=== PATIENT | female | born 1955 | race Caucasian/White ===

== ENCOUNTER 2017-03-07 10:17 | Day surgery (SDC) | payer OTHER ==
--- NOTE | 2017-02-23 08:02 | HP ---
CC: Andres Hutchins MD * ADMISSION HISTORY AND PHYSICAL: DATE OF ADMISSION/SURGERY: 03/07/17 ATTENDING SURGEON: José Miguel Pastor MD * (DICTATED BY KARYNA ZURITA) PRIMARY CARE PHYSICIAN: Andres Hutchins MD CHIEF COMPLAINT: Left buttock subcutaneous lesion. HISTORY OF PRESENT ILLNESS: Mrs. Aparicio is a pleasant 61-year-old female who was seen in the office earlier this month to discuss excision of left buttock subcutaneous lesion. The patient was seen in the office by Dr. Pastor about 6 months ago regarding a lesion in her buttock/sacral area that has been bothering her on and off for the past year or so. At that time, she appeared to be mostly asymptomatic; however, she experienced some pressure feeling upon sitting for a long time. The patient does a lot of travelling due to her work obligations and notes occasional problem while sitting for a prolonged flights going away or coming back home. She has family history consistent with neurofibromatosis, but denies any similar lesion herself in the past few years. She was seen 6 months ago and again came back a couple of weeks ago for a followup and denies any significant changes in her sacral/buttock lesion. She had an MRI done that was read by Dr. Pastor and was found to have some dystrophic calcification secondary to chronic inflammation or potentially a chondroid type neoplasm given the morphology of the lesions. The patient herself denies any history of significant pain, bleeding, or discharge from the area. She does note that she fell on her tail bone 2 years ago while shoveling snow where she experienced significant pain in the area; however, she denies any bleeding or hematoma. She was seen by Dr. Hutchins and frequent exams of this area revealed no significant abnormality. She underwent a biopsy at [facility] by Dr. Pastor that revealed evidence of benign probably ruptured cystic mass from the left buttock area. Given her ongoing symptoms and uncertainty of the lesion, she was considered to do a full excision of the area under monitored anesthesia care to be scheduled on an elective date. PAST MEDICAL HISTORY: Significant for panic disorders and recently diagnosed with partial complex seizures; however, she denies any evidence of myoclonic seizure or any loss of consciousness. She also has history of palmar fibromatosis. PAST SURGICAL HISTORY: Significant for dilatation and curettage in the 1979 and 1982. CURRENT MEDICATIONS: Her medications at home include: 1. Potassium 99 mcg one daily. 2. Calcium with vitamin D 600 units 2 tablets daily. 3. Aspirin 81 mg p.o. daily. 4. Multivitamin once a day. 5. Claritin 10 mg p.o. as needed for congestion. 6. Fluoxetine 20 mg 1 tablet daily. 7. Divalproex sodium 250 mg 1 tablet twice daily. ALLERGIES: She is allergic to IV DYE, CODEINE, and DILANTIN. FAMILY HISTORY: She reports family history of neurofibromatosis in both her parents. She denies any family history of melanoma or colorectal malignancies. SOCIAL HISTORY: The patient is single. 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 She is a current smoker, who smokes half a pack per day and she drinks alcohol occasionally. REVIEW OF SYSTEMS: See HPI, otherwise negative. She denies any headache, dizziness, blurred vision, or double vision. No chest pain, palpitation, shortness of breath, or wheezing. No back pain, flank pain, dysuria, hematuria , or urinary frequency. She admits to a bulge or a mass on the left buttock area, but denies any significant tenderness, oozing, bleeding, or discharge from the area. No fever, chills, night sweats, or recent weight loss. PHYSICAL EXAMINATION GENERAL: She is a pleasant, healthy-appearing upper middle-aged female, in no acute distress or discomfort at the time of her consultation. VITAL SIGNS: Her vitals today revealed blood pressure of 136/81, respiration of 16, pulse of 75, and temperature 98.1. HEENT: Head is normocephalic, atraumatic. Sclerae anicteric. PERRLA. EOMs intact. Oropharynx is pink and moist with no exudate. NECK: Supple. Trachea midline. No cervical adenopathy, thyromegaly, or JVD. LUNGS: Clear to auscultation bilaterally. HEART: Regular rate and rhythm. Normal S1 and S2 without rubs, murmurs, or gallops. BACK: With normal curvature. No CVA tenderness. BREAST EXAM: Deferred at this time. ABDOMEN: Soft, nontender, and nondistended. No hernias, masses, or hepatosplenomegaly. EXTREMITIES: Without cyanosis, clubbing, or edema. BACK EXAM: Focussed exam of the sacral region revealed an approximately 4 cm mobile lesion deep to the skin along the left buttock adjacent to the gluteal cleft. It is regularly shaped; however, mobile and nontender on exam. There is no overlying skin changes or any evidence of discharge or erythema noted. It does feel somewhat tethered to the skin at the most central portion. There is no evidence of pilonidal cyst at midline. RECTAL EXAM: Deferred at this time. IMPRESSION: A 61-year-old female with longstanding history of intermittently tender left buttock/sacral subcutaneous lesion. PLAN: The patient is scheduled for excision of left buttock subcutaneous lesion to be performed by Dr. Pastor on a later date. We went on and discussed with her the rationale, indication, risks, and benefits of surgery. Risks include, but not limited to infection, bleeding, or injury to adjacent structures. She appears to understand and wishes to proceed as outlined. She was advised to hold her aspirin 5 days prior to the surgery and we will plan to follow her up accordingly. KARYNA ZURITA [id number]/[facility] #: [id number] MTDD
[~2017-03-07 10:17] MED LIST: Buffered Lidocaine 0.9% SYRIN* 5 ML/SYR SYRINGE INTRADERM ONE
[2017-03-07] MEDS ORDERED: Buffered Lidocaine 0.9% SYRIN* 5 ML/SYR SYRINGE ONE (10:21)
[2017-03-07] MEDS ORDERED: ceFAZolin 2 GM PREMIX (*) 2 GM/50 ML BAG IVPB ONE (10:21)
[2017-03-07] MEDS ORDERED: fentaNYL* 50 MCG/ML 2 ML VIAL (100 MCG VIAL) ONE (10:24)
[2017-03-07] MEDS ORDERED: Midazolam* 1 MG/ML 2 ML VIAL (2 MG) ONE (10:24)
[2017-03-07] MEDS ORDERED: Bupivacaine 0.25% SDV* 30 ML ONE (13:15)
[2017-03-07] MEDS ORDERED: Lidocaine 1% INJ* 10 MG/ML 30 ML SDV ONE (13:15)
[2017-03-07] MEDS ORDERED: Propofol* 10 MG/ML 20 ML BTL IV PUSH ONE (13:31)
[2017-03-07] MEDS ORDERED: Ondansetron INJ* 2 MG/ML VIAL ONE (13:31)
[2017-03-07] MEDS ORDERED: Naloxone* 0.4 MG/ML 1 ML VIAL IV PRN (13:42)
[2017-03-07] MEDS ORDERED: Ibuprofen TAB* 600 MG PO PRN (13:42)
[2017-03-07] MEDS ORDERED: oxyCODONE/Acetamin 5/325 MG* TAB PO PRN (14:16)
[2017-03-07 15:02] VITALS: BP 144/84
--- NOTE | 2017-03-29 16:50 | OP ---
CC: Dr. Andres Hutchins * DATE OF OPERATION: 03/07/17 - SDS Please note, this is a late entry. DATE OF : 53 SURGEON: José Miguel Pastor MD [employer] INSTRUCTOR: KARYNA Lu ANESTHESIA: Local MAC anesthesia. PRE-OP DIAGNOSIS: Left gluteal subcutaneous lesion. POST-OP DIAGNOSIS: Left gluteal subcutaneous lesion. OPERATIVE PROCEDURE: Excision of left gluteal lesion. ESTIMATED BLOOD LOSS: Minimal. SPECIMEN: Left gluteal mass. FLUIDS: 1000 cc of lactated Ringer's. DRAINS: None. DESCRIPTION OF PROCEDURE: The patient was identified in the preoperative area and the lesion marked and the consent signed. She was taken to the operating room, placed on the operating table in the prone position. General sedation was given. Preoperative antibiotics were given. Sequential devices were placed on bilateral lower extremities. The left gluteal region was prepped and draped sterilely. A time-out was performed. Review of the lesion was performed and we made the decision to form an elliptical incision off the midline, trying to stay away from this midline. The lesion was approximately 5 cm in its greatest dimension. We injected local numbing medication and elliptical incision was made, flaps were made both inferiorly and superiorly. The lesion was slowly brought up into our dissection till we could take the posterior down. The posterior portion of this did attach to the gluteal muscles, but did not extend into the musculature. The lesion was then passed off as specimen. It was un-oriented. We then irrigated the wound. Hemostasis was obtained and then we closed the skin with 3-0 nylon sutures in a mattress fashion. Sterile dressing was applied. The patient tolerated the procedure well and was transferred to the PACU in stable condition. [id number]/[facility] #: [id number] [facility]
== END 2017-03-07 15:03 | disposition home or self-care (01) ==
LOC: OR 10:17
PROVIDERS: ATTEND Surgery
DX: L94.2 Calcinosis cutis (principal); R56.9 Unspecified convulsions; J30.2 Other seasonal allergic rhinitis; F41.0 Panic disorder [episodic paroxysmal anxiety]; F17.210 Nicotine dependence, cigarettes, uncomplicated
CPT/HCPCS: 88305; J0690; J2250; J2405; J2704; J3010